=== PATIENT | male | born 1955 | race Caucasian/White ===

== ENCOUNTER 2021-01-02 18:02 | Observation (INO) | payer OTHER, MEDICARE ==
[~2021-01-02] VITALS: Ht 170.2 cm; Wt 72.6 kg
[2021-01-02] MEDS ORDERED: METO25ER PO (18:13)
[2021-01-02] MEDS ORDERED: METHADONE IN10 MG/ML PO (18:13)
[2021-01-02] MEDS ORDERED: ZOCOR20 MG PO (18:14)
[2021-01-02] MEDS ORDERED: XARELTO20 MG PO (18:14)
[2021-01-02] MEDS ORDERED: Hair, Skin & N1 EACH PO (19:07)
[2021-01-02 19:15] LABS: BASOPHILS ABSOLUTE AUTO 0.04 K/mm3 (0.00-0.23); BASOPHILS PERCENT AUTO 1 % (0-2); EOSINOPHILS ABSOLUTE AUTO 0.05 K/mm3 (0.00-0.68); EOSINOPHILS PERCENT AUTO 1 % (0-6); Hematocrit 35.6 % (37.0-53.0); Hemoglobin 11.9 g/dL (13.5-17.5); IMMATURE GRAN ABSOLUTE AUTO 0.02 K/mm3 (0.00-0.10); IMMATURE GRAN PERCENT AUTO 0 % (0-1); LYMPHOCYTES ABSOLUTE AUTO 1.61 K/mm3 (0.84-5.20); LYMPHOCYTES PERCENT AUTO 19 % (21-46); MONOCYTES PERCENT AUTO 7 % (4-13); Mean Corpuscular HGB 32.1 pg (26.0-34.0); Mean Corpuscular HGB Conc 33.4 g/dL (31.5-36.5); Mean Corpuscular Volume 96 fL (80-100); NEUTROPHILS ABSOLUTE AUTO 6.11 K/mm3 (1.96-9.15); NEUTROPHILS PERCENT AUTO 73 % (41-73); Platelet Count 185 K/mm3 (150-400); RDW Coefficient Variation 12.2 % (11.7-14.2); RDW Standard Deviation 42.6 fL (35.1-46.3); Red Blood Cell Count 3.71 M/mm3 (4.30-5.90); White Blood Cell Count 8.43 K/mm3 (4.00-11.30)
[2021-01-02 19:37] LABS: Alanine Aminotransfer (ALT/SGP 18 U/L (12-78); Albumin, Blood 3.7 g/dL (3.4-5.0); Albumin/Globulin Ratio 0.8 (0.8-1.8); Alk Phos 50 U/L (50-136); Anion Gap 1 mmol/L (6-16); Aspartate Aminotrans (AST/SGOT 40 U/L (12-37); Bilirubin, Total 0.5 mg/dL (0.1-1.0); Blood Urea Nitrogen 14 mg/dL (8-24); Bun/Creatinine Ratio 19.3 (12.0-20.0); CO2, Blood 30 mmol/L (21-32); Calcium, Blood 9.1 mg/dL (8.5-10.1); Chloride, Blood 106 mmol/L (98-108); Creatinine, Blood 0.73 mg/dL (0.60-1.20); Globulin, Blood 4.5 g/dL (2.2-4.0); Glomerular Filtration Rate >60 (60-); Glucose, Blood 83 mg/dL (70-99); Sodium, Blood 137 mmol/L (136-145); Total Protein, Blood 8.2 g/dL (6.4-8.2)
--- NOTE | 2021-01-02 21:11 | NUR ---
CALLED AND SPOKE WITH CHLOE AT ED. REPORT RECIEVED AND PT TO 226.
[2021-01-02 22:54] LABS: Influenza A, PCR NEGATIVE (NEGATIVE); Influenza B, PCR NEGATIVE (NEGATIVE); Resp Syncytial Virus, PCR NEGATIVE (NEGATIVE); SARS-Cov-2 (COVID-19) PCR, MMC NEGATIVE (NEGATIVE)
--- NOTE | 2021-01-03 04:03 | NUR ---
SHIFT SUMMARY PT A0X4. VSS. PT REPORTS PAIN OF GENERALIZE ABD PAIN. ANTICIPATING FOR SURGERY GUILLE FOR APPY. PAIN MANAGED WITH DILAUDID AND OXY 5MG. PT INDEPENDENT IN ROOM. PT HAD SOME SANDWICH AND SNACK AT 2230. NPO AFTER MIDNIGHT. PT DENIES N/V. HE ALSO REPORTS DIARRHEA. HE HAD X2 BM. VOIDING ADEQUATELY. INFUSING NS AT 75ML/HR AT LEFT AC. CALL LIGHT WITHIN REACH.
--- NOTE | 2021-01-03 07:50 | NUR ---
pt stated he is still painful 04/12 no nausea at this time has hyperactive bt's x4 with diarrhea asked if i could see [facility] stated no
--- NOTE | 2021-01-03 09:45 | NUR ---
dr cedeño by to see pt plan for surg today
--- NOTE | 2021-01-03 12:36 | NUR ---
History, Chart, Medications and Allergies reviewed before start of procedure.Patient confirms NPO status and agrees with scheduled surgery.
--- NOTE | 2021-01-03 17:10 | NUR ---
pt arrived back to room 226 from pacu pt is s/p lap appy pt has steri strips open to air c/d/i pt denies nausea at this time cl given
--- NOTE | 2021-01-04 04:32 | NUR ---
SHIFT SUMMARY POD#1. AAOX4. DISCOMFORT CONTROLLED WITH 1 ROXICODONE Q4H + TYLENOL X1. NO NAUSEA/EMESIS. ABD INCISONS WITH STERI STRIPS SCANT DRY SS DRAINAGE. PT UP AMBULATING IN ROOM, SBA. GOOD PO INTAKE + OUTPUT. PT RESTING WELL DURING AM VITAL SIGNS. IV INFILTRATED YESTARDAY EVENING WITH PT'S REQUEST TO NOT HAVE ANOTHER STARTED, DR NOTIFIED + NEW ORDERS OBTAINED TO LEAVE IV OUT + START PO ABX, SEE EMAR. PT CURRENTLY RESTING WELL IN BED WITH CALL LIGHT IN REACH. WILL REPORT OFF TO DAY SHIFT RN DURING BEDSIDE REPORTING.
--- NOTE | 2021-01-04 07:26 | NUR ---
ASSUMED CARE: PT RESTING QUIETLY. NO ACUTE NEEDS OR CONCERNS AT THIS TIME.
[2021-01-04] MEDS ORDERED: OXYC5 PO (10:09)
[2021-01-04] MEDS ORDERED: AMOCLA875 PO (10:10)
--- NOTE | 2021-01-04 11:07 | NUR ---
DISCHARGE: REVIEWED ANTIBIOTICS AND FOLLOW UP APPOINTMENTS WITH PT. IV ALREADY REMOVED FROM NIGHT RN. DENIED FURTHER NEEDS OR CONCERNS. ESCORTED OUT VIA WHEEL CHAIR FOR CAB TO GO [place] TO [employer]. NO FURTHER NEEDS OR CONCERNS.
--- NOTE | 2021-01-05 11:41 | NUR ---
01/05/21 1141 Alyssia Oakley VERIFICATIONS: EDIT CHART.
== END 2021-01-04 10:52 | disposition home or self-care (01) ==
LOC: ER 18:02 → ERHOLD 18:03 → SURS 18:03
PROVIDERS: Emergency Medicine; Surgery; ADMIT Surgery
PROC: 0DTJ4ZZ Resection of Appendix, Percutaneous Endoscopic Approach (ICD-10-PCS; principal; 2021-01-03 13:00)
DX: K35.80 Unspecified acute appendicitis (principal); F17.200 Nicotine dependence, unspecified, uncomplicated; Z88.8 Allergy status to other drugs, medicaments and biological substances; Z20.822 Contact with and (suspected) exposure to COVID-19
CPT/HCPCS: 0241U; 80053; 85025; 88304; 96365; 96366; 96375; 96376; 99285-25; A9270; G0378; J1100; J1170; J1885; J2250; J2405; J2543; J2704; J2710; J2765; J3010; J7030; J7120

== ENCOUNTER 2024-09-04 17:45 | Emergency (ER) | payer SELFPAY ==
[~2024-09-04] VITALS: Ht 172.7 cm; Wt 74.8 kg
[~2024-09-04 17:45] MED LIST: AMOCLA875 PO; Hair, Skin & N1 EACH PO; METHADONE IN10 MG/ML PO; METO25ER PO; OXYC5 PO; XARELTO20 MG PO; ZOCOR20 MG PO
[2024-09-04 18:00] VITALS: BP 150/73
[2024-09-05] MEDS ORDERED: Bupivacaine 0.5% HCl 5 MG/ML 30MLVIAL ONE (12:35)
[2024-09-05] MEDS ORDERED: Lactated Ringer's 1,000 ML IV ONE (13:24)
== END 2024-09-05 21:18 | disposition left against medical advice (07) ==
LOC: ER 17:45
DX: L02.416 Cutaneous abscess of left lower limb (principal); Z87.891 Personal history of nicotine dependence; Z53.29 Procedure and treatment not carried out because of patient's decision for other reasons
CPT/HCPCS: 99282; J7120

== ENCOUNTER 2024-09-04 22:28 | Inpatient (IN) | payer OTHER ==
[~2024-09-04] VITALS: Ht 172.7 cm; Wt 73.8 kg
[2024-09-04 23:38] LABS: BASOPHILS ABSOLUTE AUTO 0.04 K/mm3 (0.00-0.23); BASOPHILS PERCENT AUTO 0 % (0-2); EOSINOPHILS ABSOLUTE AUTO 0.12 K/mm3 (0.00-0.68); EOSINOPHILS PERCENT AUTO 1 % (0-6); Hematocrit 32.8 % (37.0-53.0); Hemoglobin 11.1 g/dL (13.5-17.5); IMMATURE GRAN ABSOLUTE AUTO 0.05 K/mm3 (0.00-0.10); IMMATURE GRAN PERCENT AUTO 0 % (0-1); LYMPHOCYTES ABSOLUTE AUTO 1.34 K/mm3 (0.84-5.20); LYMPHOCYTES PERCENT AUTO 10 % (21-46); MONOCYTES PERCENT AUTO 8 % (4-13); Mean Corpuscular HGB Conc 33.8 g/dL (31.5-36.5); Mean Corpuscular Volume 95 fL (80-100); Mean Platelet Volume 9.7 fL (9.1-12.4); NEUTROPHILS ABSOLUTE AUTO 10.46 K/mm3 (1.96-9.15); NEUTROPHILS PERCENT AUTO 80 % (41-73); Platelet Count 268 K/mm3 (150-400); RDW Coefficient Variation 13.7 % (11.7-14.2); RDW Standard Deviation 47.5 fL (35.1-46.3); Red Blood Cell Count 3.47 M/mm3 (4.30-5.90); White Blood Cell Count 13.11 K/mm3 (4.00-11.30)
[2024-09-05] VITALS (11 sets, daily range): BP systolic 99–127; BP diastolic 45–79
[2024-09-05 00:02] LABS: Albumin, Blood 3.4 g/dL (3.4-5.0); Albumin/Globulin Ratio 0.7 (0.8-1.8); Bilirubin, Total 0.4 mg/dL (0.1-1.0); Bun/Creatinine Ratio 16.6 (12.0-20.0); Calcium, Blood 9.3 mg/dL (8.5-10.1); Creatinine, Blood 0.78 mg/dL (0.60-1.20); Potassium, Blood 4.2 mmol/L (3.5-5.5); Total Protein, Blood 8.4 g/dL (6.4-8.2)
[2024-09-05] MEDS ORDERED: OxyCODONE HCL 5 MG TAB PO ONE (00:30)
[2024-09-05] MEDS ORDERED: CefTRIAXone Sodium 1,000 MG in NS 100 ML IV ONE (02:05)
[2024-09-05] MEDS ORDERED: FLU VACC TS2024-25(6MOS UP)/PF 45 MCG/0.5 ML SYRINGE IM SCH (03:40)
[2024-09-05] MEDS ORDERED: OxyCODONE HCL 5 MG TAB PO PRN (03:45)
[2024-09-05] MEDS ORDERED: Piperacillin/Tazobactam Sod 3.375 GM in NS 100 ML IV SCH (03:55)
[2024-09-05] MEDS ORDERED: NS 1,000 ML IV SCH (04:00)
[2024-09-05] MEDS ORDERED: Vancomycin HCL 1,750 MG in NS 500 ML IV ONE (05:15)
[2024-09-05] MEDS ORDERED: Atorvastatin 10 MG Tab PO SCH (09:00)
[2024-09-05] MEDS ORDERED: Metoprolol Succinate 25 MG TABCR PO SCH (09:00)
[2024-09-05 11:59] LABS: U Amphetamine Screen Not Detected; U Barbituate Screen Not Detected; U Benzodiazapine Screen Not Detected; U Buprenorphine Screen Not Detected; U Cannabinoids Screen Not Detected; U Cocaine Screen Not Detected; U Methadone Screen Not Detected; U Methamphetamine Screen DETECTED; U Opiates Screen DETECTED; U Oxycodone Screen DETECTED; U Phencyclidine Screen Not Detected
[2024-09-05] MEDS ORDERED: propofoL 40 ML IV ONE (13:49)
--- NOTE | 2024-09-05 13:53 | NUR ---
PT BROUGHT TO DAY SURGERY TO BE MADE READY FOR SURGERY. NOON DOSE OF ZOSYN GIVEN HERE. PT IDENTIFIED, CONSENT VERIFIED, PT NPO. VSS, PT NOTED TO BE IN AFIB, BELONGINGS LABELED, PAS ON, PT TO RESTROOM. IV FLUSHED AND CONNECTED TO 1L LT. ACP AND SURGEON INTO SEE PT, AND REPORT GIVEN TO CIRCULATING RN AND PT TRANSFERED TO OR.
[2024-09-05] MEDS ORDERED: FentaNYL Citrate 50 MCG/ML 2 ML Injection ONE ×2 (13:55→14:20)
[2024-09-05] MEDS ORDERED: Furosemide 10 MG/ML 4ML Vial IV SCH (14:00)
--- NOTE | 2024-09-05 14:15 | NUR ---
09/05/24 1415 Segundo Molina BUPIVICAINE 0.5% 10CC GIVEN BY DR. HALL TO INCISION SITE
[2024-09-05] MEDS ORDERED: Ondansetron HCl 2 MG / ML 2ML Vial ONE (14:33)
[2024-09-05] MEDS ORDERED: Nicotine 21 MG PATCH TOP SCH (16:20)
[2024-09-05] MEDS ORDERED: Vancomycin HCL 1,250 MG in NS 250 ML IV SCH (18:00)
[2024-09-05] MEDS ORDERED: Rivaroxaban 10 MG Tab PO SCH (18:00)
--- NOTE | 2024-09-05 18:50 | NUR ---
PT ADMITTED TODAY FOR CELLULITIS AND ABCESS IN HIP R/T INJECTING HEROIN INTRAMUSCULARLY. I&D DONE PRIOR TO PT ADMISSION TO MEDICAL FLOOR. DRESSING CDI, PAIN CONTROLLED WITH PRN OXYCODONE. PT ADMITS TO DRINKING ALCOHOL DAILY, NO PRIOR WITHDRAWALS, CIWA OF 4 FOR ANXIETY AND BASELINE NEUROPATHY, WILL CONTINUE TO MONITOR. PT AGITATED BECAUSE HE THOUGHT HE WOULD GO HOME IMMEDIATLY AFTER I&D, RN EDUCATED PT ON THE IMPORTANCE OF STAYING TO GET IV ABX, AND CONTINUED CARDIAC TESTING. PT ON TELE A FIB/FLUTTER 100, ECHO CONSERNING FOR POSSIBLE VEGITATION, SANJAY AND CARDIAC CONSULT ORDERED. URINAL PROVIDED, CALL LIGHT IN REACH, BED ALARM ON, BED IN LOW LOCKED POSITION.
[2024-09-05] MEDS ORDERED: LORazepam 2 MG/ML 1ML Injection IV ONE (20:45)
[2024-09-05] MEDS ORDERED: ChlordiazePOXIDE 25 MG Cap PO PRN (20:55)
[2024-09-05] MEDS ORDERED: Lactobacil 2-S.Thermo-Bifido 1 1 Cap PO SCH (21:00)
[2024-09-06] MEDS ORDERED: NS 250 ML IV PRN (00:10)
[2024-09-06 05:57] VITALS: BP 117/83
[2024-09-06 06:23] LABS: BASOPHILS ABSOLUTE AUTO 0.05 K/mm3 (0.00-0.23); BASOPHILS PERCENT AUTO 1 % (0-2); EOSINOPHILS ABSOLUTE AUTO 0.12 K/mm3 (0.00-0.68); EOSINOPHILS PERCENT AUTO 1 % (0-6); Hematocrit 35.5 % (37.0-53.0); Hemoglobin 12.1 g/dL (13.5-17.5); IMMATURE GRAN ABSOLUTE AUTO 0.02 K/mm3 (0.00-0.10); IMMATURE GRAN PERCENT AUTO 0 % (0-1); LYMPHOCYTES ABSOLUTE AUTO 1.22 K/mm3 (0.84-5.20); LYMPHOCYTES PERCENT AUTO 13 % (21-46); MONOCYTES ABSOLUTE AUTO 0.61 K/mm3 (0.16-1.47); MONOCYTES PERCENT AUTO 7 % (4-13); Mean Corpuscular HGB 31.5 pg (26.0-34.0); Mean Corpuscular HGB Conc 34.1 g/dL (31.5-36.5); Mean Corpuscular Volume 92 fL (80-100); Mean Platelet Volume 9.9 fL (9.1-12.4); NEUTROPHILS ABSOLUTE AUTO 7.27 K/mm3 (1.96-9.15); NEUTROPHILS PERCENT AUTO 78 % (41-73); Platelet Count 256 K/mm3 (150-400); RDW Coefficient Variation 13.2 % (11.7-14.2); RDW Standard Deviation 44.7 fL (35.1-46.3); Red Blood Cell Count 3.84 M/mm3 (4.30-5.90); White Blood Cell Count 9.29 K/mm3 (4.00-11.30)
[2024-09-06 06:49] LABS: Albumin, Blood 2.9 g/dL (3.4-5.0); Albumin/Globulin Ratio 0.6 (0.8-1.8); Bilirubin, Total 0.6 mg/dL (0.1-1.0); Bun/Creatinine Ratio 8.5 (12.0-20.0); Calcium, Blood 9.1 mg/dL (8.5-10.1); Creatinine, Blood 0.7 mg/dL (0.60-1.20); Globulin, Blood 4.8 g/dL (2.2-4.0); Potassium, Blood 3.3 mmol/L (3.5-5.5); Total Protein, Blood 7.7 g/dL (6.4-8.2)
[2024-09-06] MEDS ORDERED: Loperamide HCl 2 MG Cap PO PRN (06:55)
[2024-09-06 07:30] VITALS: BP 123/69
[2024-09-06] MEDS ORDERED: Potassium Chloride 20 MEQ TabCR PO SCH (08:00)
[2024-09-06] MEDS ORDERED: Ferrous Sulfate 325 MG Tab PO SCH (08:00)
[2024-09-06] MEDS ORDERED: LORazepam 1 MG Tab PO PRN (08:05)
[2024-09-06] MEDS ORDERED: Buprenorphine HCL/Naloxone HCL 8MG-2MG Tab SL SCH (09:00)
[2024-09-06] MEDS ORDERED: Metoprolol Succinate 25 MG TABCR PO SCH (09:00)
[2024-09-06] MEDS ORDERED: Multivitamins/Minerals TAB PO SCH (09:00)
[2024-09-06] MEDS ORDERED: Lactated Ringer's 1,000 ML IV SCH (10:10)
[2024-09-06] MEDS ORDERED: Prochlorperazine Edisylate 10 mg Vial IV PRN (13:45)
[2024-09-06] MEDS ORDERED: Folic Acid 1 MG in NS 50 ML IV SCH (14:00)
[2024-09-06] MEDS ORDERED: Thiamine HCl 100 MG in NS 50 ML IV SCH (15:00)
--- NOTE | 2024-09-06 15:45 | NUR ---
PT CALLED ME TO ROOM. STATES FEELS SURGEON TOLD HIM COULD MANAGE WOUND CARE AT HOME. FEELS HE WANTS TO GO HOME NOW. EDUCATED RISK OF INFECTION GETTING WORSE, UP TO THE POSSIBILITY OF FROM INFECTION IF NOT TAKING ANTIBIOTICS. EXPLAINED WE DO NOT HOLD PEOPLE, BUT THAT THE BENEFITS OUTWAY THE DRAWBACKS IN STAYING TO RECEIVE RECOMMENDED ABX. PT REQUEST SPEAK TO TO SEE ABOUT LEAVING. AGREED. CALLED DR BYRD, HE STATES WILL COME TO SEE PT.
[2024-09-06 16:05] VITALS: BP 113/69
--- NOTE | 2024-09-06 16:48 | NUR ---
DR BYRD IN ROOM. STATES HE OBSERVED WOUND AND FEELS DRESSING NEEDS CHANGED. REQUESTED I CALL DR HALL FOR ORDERS TO DO SO. CALLED DR HALL. [facility].
--- NOTE | 2024-09-06 19:30 | NUR ---
PT WAS THROWING UP AND DIARRHEA THIS AM SINCE START OF SHIFT. VERY SOMULENT FIRST HALF OF DAY. STARTED IMMODIUM THIS AM. DIARRHEA SLOWING DOWN NOW. PT WOKE UP MUCH MORE THIS AFTERNOON. STATED WANTED TOGO HOME. SEE PRIOR NOTE. HE AGREED TO STAY AT LEAST THRU TO TOMORROW AM. DR BYRD SPOKE TO PT. DRESSING CHANGE PERFORMED BY THIS RN THIS AFTERNOON. NEW ORDERS GIVEN PER DR HALL. PT DID AMBULATE TO BATHROOM, 1 MIN ASST WITH GAIT BELT. A LITTLE WOBBLEY, BUT DID PRETTY WELL. NO OTHER NEW CONCERNS NOTED. BED IN LOW POSITION, CALL LITE IN REACH, CALLS APROP
[2024-09-06 20:08] VITALS: BP 116/82
[2024-09-06] MEDS ORDERED: Gabapentin 300 MG Cap PO SCH (21:00)
[2024-09-07 04:14] VITALS: BP 130/91
[2024-09-07 05:48] LABS: BASOPHILS ABSOLUTE AUTO 0.05 K/mm3 (0.00-0.23); BASOPHILS PERCENT AUTO 1 % (0-2); EOSINOPHILS ABSOLUTE AUTO 0.13 K/mm3 (0.00-0.68); EOSINOPHILS PERCENT AUTO 1 % (0-6); Hematocrit 34.7 % (37.0-53.0); Hemoglobin 11.9 g/dL (13.5-17.5); IMMATURE GRAN ABSOLUTE AUTO 0.07 K/mm3 (0.00-0.10); IMMATURE GRAN PERCENT AUTO 1 % (0-1); LYMPHOCYTES ABSOLUTE AUTO 1.58 K/mm3 (0.84-5.20); LYMPHOCYTES PERCENT AUTO 15 % (21-46); MONOCYTES ABSOLUTE AUTO 0.98 K/mm3 (0.16-1.47); MONOCYTES PERCENT AUTO 9 % (4-13); Mean Corpuscular HGB 31.4 pg (26.0-34.0); Mean Corpuscular HGB Conc 34.3 g/dL (31.5-36.5); Mean Corpuscular Volume 92 fL (80-100); Mean Platelet Volume 9.5 fL (9.1-12.4); NEUTROPHILS PERCENT AUTO 74 % (41-73); Platelet Count 301 K/mm3 (150-400); RDW Coefficient Variation 13.2 % (11.7-14.2); Red Blood Cell Count 3.79 M/mm3 (4.30-5.90); White Blood Cell Count 10.91 K/mm3 (4.00-11.30)
[2024-09-07 06:26] LABS: Magnesium, Blood 1.5 mg/dL (1.6-2.4)
[2024-09-07 06:31] LABS: Alanine Aminotransfer (ALT/SGP 23 U/L (12-78); Albumin, Blood 2.9 g/dL (3.4-5.0); Albumin/Globulin Ratio 0.6 (0.8-1.8); Alk Phos 67 U/L (50-136); Anion Gap 11 mmol/L (3-11); Aspartate Aminotrans (AST/SGOT 63 U/L (12-37); Bilirubin, Total 0.5 mg/dL (0.1-1.0); Blood Urea Nitrogen 8 mg/dL (8-24); Bun/Creatinine Ratio 8.6 (12.0-20.0); CO2, Blood 27 mmol/L (21-32); Calcium, Blood 8.9 mg/dL (8.5-10.1); Chloride, Blood 106 mmol/L (98-108); Creatinine, Blood 0.93 mg/dL (0.60-1.20); Globulin, Blood 4.9 g/dL (2.2-4.0); Glomerular Filtration Rate 88 (60-); Glucose, Blood 94 mg/dL (70-99); Potassium, Blood 3.2 mmol/L (3.5-5.5); Sodium, Blood 141 mmol/L (136-145); Total Protein, Blood 7.8 g/dL (6.4-8.2); Vancomycin, Trough 27.8 ug/mL (5.0-10.0)
--- NOTE | 2024-09-07 06:35 | NUR ---
CRITICAL LAB--[facility].8. CALL TO PHARMACY, SPOKE WITH PHARMACIST TO REVIEW AND ADJUST ACCORDINGLY.
--- NOTE | 2024-09-07 06:45 | NUR ---
WAREHOUSE INCENTIVE SELECTOR SUMMARY PT A/OX4. PT SLEEPING T/O THE NIGHT. AGITATED WIT INTERACTION AND SOUNDS/ALARMS IN THE HOSPITAL. PT SLEPT WITH T/O THE NIGHT. NO VOMITING OR DIARRHEA THIS SHIFT. CALL LIGHT ACCESSIBLE. DRESSING TO LEFT HIP NOT CHANGED; DRESSING CDI.
[2024-09-07] MEDS ORDERED: Mag Sulfate 1 GM/D5% 100ML 100 ML IV STA (07:12)
[2024-09-07 07:25] VITALS: BP 120/91
[2024-09-07] MEDS ORDERED: Potassium Chl 20MEQ/Water100ML 100 ML IV SCH (08:30)
[2024-09-07] MEDS ORDERED: Vancomycin HCL 750 MG in NS 250 ML IV SCH (10:00)
[2024-09-07 10:19] LABS: HIV 1,2 COMBO ANTIGEN/ANTIBODY Negative (Negative)
[2024-09-07] MEDS ORDERED: Potassium Chloride 20 MEQ TabCR PO ONE (10:25)
--- NOTE | 2024-09-07 10:41 | NUR ---
SPOKE TO DR MORALEZ. PT IV WENT BAD. K+ BARELY STARTED. ORDERS TO REPLACE WITH PO K-DUR 40 MEQ. NOW. OKAY NO IV ACCESS. DISCUSSED VANCO WILL NOT RUN. PLANNING DISCHARGE
[2024-09-07 10:55] LABS: HEPATITIS C AB CIA INTERP High Pos (Negative); HEPATITIS C ANTIBODY CIA INDEX >11.00 IV
[2024-09-07] MEDS ORDERED: FERSU300 PO ×2 (15:10)
[2024-09-07] MEDS ORDERED: BACTRIM DS TAB1 EAC1 PO ×2 (15:11)
[2024-09-07] MEDS ORDERED: FURO40 PO ×2 (15:11)
[2024-09-07] MEDS ORDERED: VISBIOME 112.51 EACH PO ×2 (15:12)
[2024-09-07] MEDS ORDERED: JARDIANCE10 MG PO ×2 (15:12)
[2024-09-07] MEDS ORDERED: POTCHL20ER PO ×2 (15:12)
[2024-09-07] MEDS ORDERED: SPIR25 PO ×2 (15:13)
--- NOTE | 2024-09-07 15:59 | NUR ---
DISCHARGE REVIEWED WITH PT. HE VERBALIZED UNDERSTANDING MEDS AND INST. GAVE FEW DAYS WOUND MATERIALS. AGREES TO CALL DR AT [place] AND AT [facility] FOR FOLLOWUP. TELE REMOVED AND RETURNED. IV PULLED INTACT . PT WHEELED TO DOOR AT 1600
[2024-09-09 09:53] LABS: HCV QNT BY NAAT (IU/ML) Not Detected; HCV QNT BY NAAT (LOG IU/ML) Not Detected; HCV QNT BY NAAT INTERP Not Detected (Not Detected)
== END 2024-09-07 16:00 | disposition home or self-care (01) | DRG 853 ==
LOC: ER 22:28 → ERHOLD 22:29 → MEDS 09-05 15:03 → ERHOLD 09-05 15:03 → MEDS 09-05 15:45
PROVIDERS: Student in an Organized Health Care Education/Training Program; Surgery; ADMIT Internal Medicine
PROC: 3E03329 Introduction of Other Anti-infective into Peripheral Vein, Percutaneous Approach (ICD-10-PCS; 2024-09-04)
PROC: 0KBP0ZZ Excision of Left Hip Muscle, Open Approach (ICD-10-PCS; principal; 2024-09-05 11:00)
DX: A41.9 Sepsis, unspecified organism (principal); I33.0 Acute and subacute infective endocarditis; L02.416 Cutaneous abscess of left lower limb; I50.32 Chronic diastolic (congestive) heart failure; F10.939 Alcohol use, unspecified with withdrawal, unspecified; F11.20 Opioid dependence, uncomplicated; I48.20 Chronic atrial fibrillation, unspecified; L02.31 Cutaneous abscess of buttock; I96 Gangrene, not elsewhere classified; E87.1 Hypo-osmolality and hyponatremia; L03.317 Cellulitis of buttock; D64.9 Anemia, unspecified; Z86.73 Personal history of transient ischemic attack (TIA), and cerebral infarction without residual deficits; I11.0 Hypertensive heart disease with heart failure; I34.0 Nonrheumatic mitral (valve) insufficiency; G62.9 Polyneuropathy, unspecified; I77.810 Thoracic aortic ectasia; F15.10 Other stimulant abuse, uncomplicated; R73.9 Hyperglycemia, unspecified; B19.20 Unspecified viral hepatitis C without hepatic coma; E83.42 Hypomagnesemia; E87.6 Hypokalemia; Z90.49 Acquired absence of other specified parts of digestive tract; Z98.890 Other specified postprocedural states; Z88.8 Allergy status to other drugs, medicaments and biological substances; Z79.899 Other long term (current) drug therapy; Z79.01 Long term (current) use of anticoagulants
CPT/HCPCS: 36415; 72193; 80053; 80202; 82947; 83605; 83735; 83880; 85025; 86803; 87040; 87070; 87075; 87077; 87186; 87205; 87389; 87522; 93005; 93010; 93306; 96365-59; 96366-59; 96367-59; 96368; 99284-25; A9270; G0378; J0696; J1940; J2060; J2405; J2543; J2704; J3010; J3370; J3411; J3475; J3480; J7030; J7040; J7050; J7120; Q9967

== ENCOUNTER 2024-09-12 14:39 | Emergency (ER) | payer OTHER ==
[~2024-09-12] VITALS: Ht 172.7 cm; Wt 70.3 kg
[~2024-09-12 14:39] MED LIST changes: +BACTRIM DS TAB1 EAC1 PO; +FERSU300 PO; +FURO40 PO; +JARDIANCE10 MG PO; +POTCHL20ER PO; +SPIR25 PO; +VISBIOME 112.51 EACH PO
[2024-09-12 15:17] LABS: BASOPHILS ABSOLUTE AUTO 0.08 K/mm3 (0.00-0.23); BASOPHILS PERCENT AUTO 1 % (0-2); EOSINOPHILS ABSOLUTE AUTO 0.31 K/mm3 (0.00-0.68); EOSINOPHILS PERCENT AUTO 3 % (0-6); Hematocrit 37.8 % (37.0-53.0); Hemoglobin 12.5 g/dL (13.5-17.5); IMMATURE GRAN ABSOLUTE AUTO 0.07 K/mm3 (0.00-0.10); IMMATURE GRAN PERCENT AUTO 1 % (0-1); LYMPHOCYTES ABSOLUTE AUTO 2.04 K/mm3 (0.84-5.20); LYMPHOCYTES PERCENT AUTO 22 % (21-46); MONOCYTES ABSOLUTE AUTO 0.61 K/mm3 (0.16-1.47); MONOCYTES PERCENT AUTO 7 % (4-13); Mean Corpuscular HGB 31.9 pg (26.0-34.0); Mean Corpuscular HGB Conc 33.1 g/dL (31.5-36.5); Mean Corpuscular Volume 96 fL (80-100); Mean Platelet Volume 9.6 fL (9.1-12.4); NEUTROPHILS ABSOLUTE AUTO 6.16 K/mm3 (1.96-9.15); NEUTROPHILS PERCENT AUTO 66 % (41-73); Platelet Count 370 K/mm3 (150-400); RDW Coefficient Variation 13.4 % (11.7-14.2); RDW Standard Deviation 47.8 fL (35.1-46.3); Red Blood Cell Count 3.92 M/mm3 (4.30-5.90); White Blood Cell Count 9.27 K/mm3 (4.00-11.30)
[2024-09-12 15:39] LABS: Albumin/Globulin Ratio 0.7 (0.8-1.8); Bilirubin, Total 0.4 mg/dL (0.1-1.0); Bun/Creatinine Ratio 16.8 (12.0-20.0); Calcium, Blood 9.7 mg/dL (8.5-10.1); Creatinine, Blood 1.84 mg/dL (0.60-1.20); Globulin, Blood 5.8 g/dL (2.2-4.0); Total Protein, Blood 9.8 g/dL (6.4-8.2)
[2024-09-12 16:30] VITALS: BP 120/82
== END 2024-09-12 17:49 | disposition home or self-care (01) ==
LOC: ER 14:39
PROVIDERS: Physician Assistant
DX: N17.9 Acute kidney failure, unspecified (principal); Z53.29 Procedure and treatment not carried out because of patient's decision for other reasons; Z88.8 Allergy status to other drugs, medicaments and biological substances; Z79.899 Other long term (current) drug therapy; Z79.01 Long term (current) use of anticoagulants; I48.91 Unspecified atrial fibrillation
CPT/HCPCS: 80053; 85025; 99284

== ENCOUNTER 2024-10-21 08:00 | Day surgery (SDC) | payer OTHER, MEDICARE | END 2024-10-25 23:16 | disposition home or self-care (01) | LOC: WOUND 08:00 | DX: L02.416 Cutaneous abscess of left lower limb (principal); L97.125 Non-pressure chronic ulcer of left thigh with muscle involvement without evidence of necrosis; S71.002D Unspecified open wound, left hip, subsequent encounter; L08.9 Local infection of the skin and subcutaneous tissue, unspecified; I48.91 Unspecified atrial fibrillation; I50.9 Heart failure, unspecified; M19.90 Unspecified osteoarthritis, unspecified site; Z72.0 Tobacco use | CPT/HCPCS: A6213; G0463 ==

== ENCOUNTER 2024-11-04 04:52 | Day surgery (SDC) | payer OTHER, MEDICARE ==
[2024-11-04] MEDS ORDERED: Lidocaine HCl 4% Cream 5 GM ONE (11:13)
== END 2024-11-04 23:00 | disposition home or self-care (01) ==
LOC: WOUND 04:52
DX: L02.416 Cutaneous abscess of left lower limb (principal); L97.125 Non-pressure chronic ulcer of left thigh with muscle involvement without evidence of necrosis; S71.002D Unspecified open wound, left hip, subsequent encounter; L08.9 Local infection of the skin and subcutaneous tissue, unspecified; Z72.0 Tobacco use; X58.XXXD Exposure to other specified factors, subsequent encounter
CPT/HCPCS: A6213; A9270